=== PATIENT | female | born 1975 | race Caucasian/White ===

== ENCOUNTER 2016-10-07 21:51 | Emergency (ER) | payer BC ==
--- NOTE | 2016-10-07 23:50 | ED ORDER SUMMARY ---
..... Patient: IVANA GOMEZ OrderSheet [facility] VisitID: [id number] [place] [address] 40y, F Registration Date/Time: 10/07/2016 ORDER SHEET Weight: 49.8 kg (stated) Allergies: No Known Drug Allergy GENERAL ORDERS: Mortician Supplies Sales Representative (Continuous) (22:10/07/2016 Kostas HUNTER) (22:15 EInderbitzen R.N.) CBC w Diff Urgent (22:10/07/2016 Kostas HUNTER) (Ack 22:10 CHagerty ER Tube Repairer) (22:56 EInderbitzen R.N.) CMP Urgent (:10/07/2016 Kostas HUNTER) (Ack 22:10 CHagchino ER Tube Repairer) (22:56 EInderbitzen R.N.) UA-Culture if indicated Urgent (22:10/07/2016 Kostas HUNTER) (Ack 22:10 Xiang ER Tube Repairer) Amylase Urgent (22:10/07/2016 Kostas HUNTER) (Ack 22:10 Lottieerty ER Tube Repairer) (22:56 EInderbitzen R.N.) Lipase Urgent (22:10/07/2016 Kostas HUNTER) (Ack 22:10 CHagchino ER Tube Repairer) (22:56 EInderbitzen R.N.) CPK Urgent (22:10/07/2016 Kostas HUNTER) (Ack 22:10 CHagchino ER Tube Repairer) (22:56 EInderbitzen R.N.) Troponin-I Urgent (22:10/07/2016 Kostas HUNTER) (Ack 22:10 CHagerty ER Tube Repairer) (22:56 EInderbitzen R.N.) D-Dimer Urgent (22:10/07/2016 Kostas HUNTER) (Ack 22:10 Xiang ER Tube Repairer) (22:56 EInderbitzen R.N.) Urine Urgent (22:10/07/2016 Kostas HUNTER) (Ack 22:10 CHagerty ER Tube Repairer) Oxygen (2 L/min) (NC) (22:10/07/2016 Kostas UHNTER) (22:15 EInderbitzen R.N.) Pulse oximeter (22:09 10/07/2016 Kostas HUNTER) (22:15 EInderbitzen R.N.) EKG - ER Stat (22:09 10/07/2016 Kostas HUNTER) (Ack 22:10 CHagerty ER Tube Repairer) (22:20 CHagerty ER Tube Repairer) Abd Series 2V Abd/1V Chest Urgent (23:19 10/07/2016 Kostas HUNTER) (Ack 23:24 CHagerty ER Tube Repairer) (23:36 MCampbell) MEDICATION ORDERS: GI Cocktail WHITE PO 30 mL with Lidocaine Viscous Mouth/Throat 15 mL, Maalox Plus Oral 15 mL (NOW) (22:26 10/07/2016 Kostas HUNTER) (22:57 EInderbitzen R.N.) IV FLUIDS: IV Saline Lock (22:09 10/07/2016 Kostas HUNTER) (22:56 EInderbitzen R.N.) Protonix IVP 40mg 40 mg (Mix in NS 10ml over 2min) (22:30 10/07/2016 Kostas HUNTER) (22:57 EInderbitzen R.N.) IV NS : initial bolus 500 mL (1000 mL/hr), then 125 mL/hr for 4h (NOW); Urgent (22:34 10/07/2016 Kostas HUNTER) (22:58 EInderbitzen R.N.) ORDER SHEET NOTES: [Electronically signed by Brandon Downs MD (01:22 10/08/2016)] [Electronically signed by Fidelia Reyes R.N. (19:36 10/08/2016)] [Electronically locked/signed by Fidelia Reyes R.N. (19:36 10/08/2016)]
--- NOTE | 2016-10-07 23:50 | ED NURSING NOTES ---
Clinical Report - Nurses [facility] [address] [place] [address] 10/07/2016 21:54 Patient: IVANA GOMEZ TRIAGE Triage time 2200. Acuity: LEVEL 3. Chief Complaint: ABDOMINAL PAIN and (midline abd pain she describes as stabbing onset this am, getting progressively worse thru day, now having epigstric/chest pain). --22:10 Ann Ye R.N. 22:00 10/07/16. BP: 126/88. HR: 85. RR: 20. O2 saturation: 100%. Temp: 98.5 F. Pain level now: 03/24. --22:10 Ann Ye R.N. Weight: 49.8 kg stated. Height/Length: 64 inches Per Patient. BMI: 18.9. --22:09 Ann Ye R.N. Allergies No Known Drug Allergy. --19:35 Fidelia Reyes R.N. History Arrived by private vehicle. Historian: patient. Accompanied by spouse. No primary care physician. The patient has had abdominal pain. ( has hx of Gastric reflux, worried she might be getting an ulcer). No nausea, vomiting or diarrhea. PAST MEDICAL HX: Last normal menstrual period- 2 weeks ago. SURGERY HX: Tonsillectomy. ( facial surgery demies removal/ D&C). SOCIAL HX: Former smoker- less than 1/2 a pack per day. Occasional alcohol use. No drug use. --22:10 Ann Ye R.N. PROBLEMS: Gastric reflux. --22:07 Ann Ye R.N. Assessment The patient states does not feel worse. --22:10 Ann Ye R.N. Interventions ID band on patient. To treatment room. --22:10 Ann Ye R.N. PHYSICAL ASSESSMENT 22:00. Ambulatory to room. Patient gowned. GENERAL / NEURO / PSYCH: Alert. Oriented X 4. Appears in pain. RESPIRATORY: Respirations not labored. CVS: Capillary refill less than 2 seconds. GI / : Abdomen soft. SKIN: Skin is warm and dry. --22:11 Ann Ye R.N. NURSING PROGRESS NOTES 22:00. Patient gowned. Head of bed elevated. Reassurance given. Patient identifiers checked. Call light placed in reach. Side rails up. Bed placed in lowest position. Patient ready for evaluation- chart flagged. --22:10 Ann Ye R.N. 22:20 10/07/16. ( MD at bedside). --22:20 Fidelia Reyes R.N. EKG time: (2220). EKG was ordered, performed by a tech and shown to the ED physician. --22:22 Willie Saha, ER Subassembly Supervisor 22:40 10/07/2016 Site #1 started via IV in the left forearm with an 20g angiocath, with aseptic technique and good blood return; one attempt. Blood drawn: rainbow set. Labeled in the presence of the patient and sent to the lab. Saline lock flushed with 5 mL saline. --22:56 Fidelia Reyes R.N. 22:50 10/07/2016 Started bag #1 1000 mL IV Fluids IV NS (Saline); bolus of 500 mL over 30 minute(s) then at 125 mL/hr over 4 hour(s) via site #1 via IV pump. Allergies verified and confirmed 5 rights. IV patency established. IV site checked: no pain, redness, or swelling. IV flushed thoroughly pre- and post-medication administration. --22:58 Fidelia Reyes R.N. 22:52 10/07/2016 PROTONIX (Pantoprazole Sodium) IVP 40 mg given over 5 minute(s) via site #1. Allergies verified and confirmed 5 rights. IV patency established. IV site checked: no pain, redness, or swelling. IV flushed thoroughly pre- and post-medication administration. IVP given by RN. --22:57 Fidelia Reyes R.N. 22:53 10/07/2016 GI COCKTAIL WHITE (Simethicone) PO Oral Suspension 30 mL given. Allergies verified and confirmed 5 rights. --22:57 Fidelia Reyes R.N. 23:12 10/07/16. Reassessment after fluids administered and medication administered. She is calm and resting quietly. Overall patient status is the same- she states feels the same. --23:12 Fidelia Reyes R.N. 23:27 10/07/16. Patient walked to [facility] with tech. ( Pain medication offered, patient declined.). --23:27 Fidelia Reyes R.N. DISPOSITION / DISCHARGE Departure time: 00:39 Oct 08 2016. The patient was discharged by the physician. She was discharged home and accompanied by family. She left the Emergency Department ambulatory and via private vehicle. Family member driving. --00:39 Sander Greenfield R.N. 00:38 10/08/16. BP: 108/74. HR: 82. RR: 18. O2 saturation: 98%. Temp: 97.8 F. --00:39 Sander Greenfield R.N. Locked/Released at 10/08/2016 19:36 by Fidelia Reyes R.N.
--- NOTE | 2016-10-07 23:50 | ED CLINICAL REPORT ---
Clinical Report - Physicians/Mid Levels [facility] [address] [place] [address] 10/07/2016 21:54 Patient: IVANA GOMEZ Time Seen: 22:07. Arrived- By private vehicle. Historian- patient. HISTORY OF PRESENT ILLNESS Chief Complaint: ABDOMINAL PAIN. At its maximum, severity described as 8 / 10. When seen in the E.D., severity described as mild. Modifying factors- worsened by walking. Relieved by antacids. It is described as stabbing and burning and it is described as located in the upper abdomen and radiating to the chest. This started today and is still present. It was abrupt in onset and has been constant and waxing/waning. No nausea, loss of appetite, vomiting or diarrhea. No recent travel. Similar symptoms previously: Several times. Evaluation/treatment: H2 cheryl prescribed and see medication list. Diagnosis: (GERD). REVIEW OF SYSTEMS Last normal menstrual period- 21 Sep 2016. No chills, fever, sweats, calf pain or cough. No difficulty breathing, pedal edema, palpitations, black stools or bloody stools. No constipation or urinary problems. All systems otherwise negative, except as recorded above. PAST HISTORY PCP - None. SOCIAL HISTORY Current every day heavy tobacco smoker (cigarette)- less than 1 pack per day. Occasional alcohol use. No drug use. Residence: [place]. FAMILY HISTORY Hypertension in first-degree relative (father). father with severe GERD. ADDITIONAL NOTES The nursing notes have been reviewed. PHYSICAL EXAM Vital Signs: 10/07/2016 22:00 BP: 126/88. HR: 85. RR: 20. O2 saturation: 100%. Temp: 98.5 F. Pain level now: 8/10. Have been reviewed. Appearance: Alert. Eyes: Pupils equal, round and reactive to light. ENT: Pharynx normal. Neck: Neck supple. CVS: Normal heart rate and rhythm. Heart sounds normal. Respiratory: No respiratory distress. Breath sounds normal. Abdomen: Soft and nontender. Bowel sounds normal. No organomegaly. No mass. Back: Normal inspection. Skin: Skin warm and dry. Normal skin color. Normal skin turgor. Extremities: Extremities exhibit normal ROM. No lower extremity edema. LABS, X-RAYS, AND EKG EKG: Rate: 85. The study has been independently viewed by me. Chest X-ray: No acute disease. The X-rays were independently viewed by me. KUB: No acute disease. The X-rays were independently viewed by me. Laboratory Tests: UA-Culture if indicated: (LEANN: 10/07/2016 23:00) ( [facility] [place] 10/07/2016 23:21) Final results Test Result Flag Units (Reference) URINE COLOR YELLOW URINE APPEARANCE CLEAR URINE GLUCOSE NEGATIVE (NEGATIVE) URINE BILIRUBIN NEGATIVE (NEGATIVE) URINE KETONE NEGATIVE (NEGATIVE) URINE SPECIFIC GRAVITY 1.015 (1.010-1.030) URINE PH 6.0 (5.0-8.0) URINE PROTEIN NEGATIVE (NEGATIVE) URINE UROBILINOGEN 0.2 EU/dL (0.2-1.0) URINE NITRITE NEGATIVE (NEGATIVE) URINE BLOOD NEGATIVE (NEGATIVE) URINE LEUK ESTERASE NEGATIVE (NEGATIVE) URINE RBC 1-3 rbc/hpf (0-1) URINE WBC 0-1 wbc/hpf (0-1) URINE EPITHELIAL CELLS 1-3 EPI/hpf (0-5) URINE BACTERIA TRACE (<1+) (NONE SEEN) URINE COMMENT CULT NOT INDICATED URINE CULTURES ARE SET-UP BASED ON THE FOLLOWING CRITERIA:POSITIVE NITRITEPOSITIVE LEUKOCYTE ESTERASEGREATER THAN 10 WHITE BLOOD CELLSMODERATE (2+) OR GREATER BACTERIA Urine: (LEANN: 10/07/2016 23:00) ( [facility] [place] 10/07/[place] 23:16) Final results Test Result Flag Units (Reference) URINE NEGATIVE CBC w Diff: (LEANN: 10/07/2016 22:40) ( [facility] [place] 10/07/2016 22:54) Final results Test Result Flag Units (Reference) WHITE BLOOD COUNT 13.7 H K/uL (4.5-11.5) RED BLOOD COUNT 4.59 M/uL (4.00-5.20) HEMOGLOBIN 13.6 gm/dL (12.0-16.0) HEMATOCRIT 41.5 % (36.0-46.0) MEAN CELL VOLUME 90 fL (80-100) MEAN CORPUSCULAR HGB 30 pg (26-34) MEAN CORPUSCULAR HGB CONC 33 g/dL (31-37) RED CELL DISTRIBUTION WIDTH 13.1 % (11.6-14.8) PLATELET COUNT 229 K/uL (150-400) LYMPH % 25.2 % (25-40) MONO % 2.4 L % (3-14) GRANULOCYTE % 72.4 (53-90) [id number]: (LEANN: 10/07/2016 22:40) ( [facility] [place] 10/07/2016 23:05) Final results Test Result Flag Units (Reference) D-DIMER QUANTITATIVE < 0.27 L ug/mLFEU (0.27-0.52) The primary value of this quantitative assay relates toits negative predictive value (i.e. exclusion) of pulmonaryembolism/deep vein thrombosis/DIC.Elevated levels of d-dimer may also occur with:, age, cancer, inflammation, liver disease,post-op, infection, hematoma, coronary disease, peripheralarteriopathy, bleeding disorders and thrombolytic treatment.Results should be correlated with other clinical andradiological data.Testing Methodology: Latex Immunoassay CMP: (LEANN: 10/07/2016 22:40) ( [facility] 10/07/2016 23:11) Final results Test Result Flag Units (Reference) GLUCOSE 106 mg/dL (70-110) BUN 12 mg/dL (7-18) CREATININE 0.8 mg/dL (0.6-1.3) Estimated GFR >60 mL/min Estimated GFR- >60 mL/min Note: Persistent reduction over 3 months in eGFR<60 mL/min/1.73 m2 defines CKD. Patients with eGFR values>=60 mL/min/1.73 m2 may also have CKD if evidence ofpersistent proteinuria. Additional information may be foundat www.kidney.org. SODIUM 139 mmol/L (136-145) POTASSIUM 4.0 mmol/L (3.5-5.1) CHLORIDE 104 mmol/L (98-107) CARBON DIOXIDE 25 mmol/L (21-32) CALCIUM 9.1 mg/dL (8.5-10.1) TOTAL PROTEIN 6.9 g/dL (6.4-8.2) ALBUMIN 4.0 g/dL (3.3-5.0) BILIRUBIN, TOTAL 0.3 mg/dL (0.0-1.0) ALKALINE PHOSPHATASE 38 L U/L (46-116) AST (SGOT) 10 L U/L (15-37) ALT (SGPT) 19 U/L (12-78) LIPASE 177 U/L (73-393) AMYLASE 42 U/L (25-115) CPK 59 U/L (24-260) TROPONIN I <0.05 L ng/mL (0.00-1.5) TROPONIN REFERENCE RANGE:<0.1 NEGATIVE0.1-1.5 INDETERMINANT>1.5 POSITIVE . PROGRESS AND PROCEDURES Patient/family counseled. Old medical records ordered. Old records unavailable. Disposition: Discharged. Condition: stable. CLINICAL IMPRESSION Gastroesophageal reflux disease with esophagitis. Gastritis INSTRUCTIONS Drink plenty of fluids. Avoid alcohol and NSAIDS. NSAIDS include aspirin, ibuprofen (Advil) and naproxen (Aleve). Avoid salty and spicy foods. Warnings: Further evaluation is necessary. GENERAL WARNINGS: Return or contact your physician immediately if your condition worsens or changes unexpectedly, if not improving as expected, or if other problems arise. Prescription Medications: Carafate 1 gm tablets: take 1 orally four times daily (1 hour before meals and at bedtime). Dispense sixty (60). No refills. Substitution is permissible. Prilosec 20 mg capsules: take 1 capsule orally every 12 hours. Dispense thirty (30). No refill. Substitution is permissible. Follow-up: Follow up with a paid search analyst- as recommended by your primary care physician. Understanding of the discharge instructions verbalized by patient and family. Follow-up with: [facility], , , [address], , [place], [id number] Follow up in five days. Call for the next available appointment. (Electronically signed by Brandon Downs MD 10/08/2016 1:22)
--- NOTE | 2016-10-07 23:50 | ED NURSING NOTES ---
Clinical Report - Nurses [facility] [address] [place] [address] 10/07/2016 21:54 Patient: IVANA GOMEZ TRIAGE Triage time 2200. Acuity: LEVEL 3. Chief Complaint: ABDOMINAL PAIN and (midline abd pain she describes as stabbing onset this am, getting progressively worse thru day, now having epigstric/chest pain). --22:10 Ann eY R.N. 22:00 10/07/16. BP: 126/88. HR: 85. RR: 20. O2 saturation: 100%. Temp: 98.5 F. Pain level now: 03/24. --22:10 Ann Ye R.N. Weight: 49.8 kg stated. Height/Length: 64 inches Per Patient. BMI: 18.9. --22:09 Ann Ye R.N. Allergies No Known Drug Allergy. --19:35 Fidelia Reyes R.N. History Arrived by private vehicle. Historian: patient. Accompanied by spouse. No primary care physician. The patient has had abdominal pain. ( has hx of Gastric reflux, worried she might be getting an ulcer). No nausea, vomiting or diarrhea. PAST MEDICAL HX: Last normal menstrual period- 2 weeks ago. SURGERY HX: Tonsillectomy. ( facial surgery demies removal/ D&C). SOCIAL HX: Former smoker- less than 1/2 a pack per day. Occasional alcohol use. No drug use. --22:10 Ann Ye R.N. PROBLEMS: Gastric reflux. --22:07 Ann Ye R.N. Assessment The patient states does not feel worse. --22:10 Ann Ye R.N. Interventions ID band on patient. To treatment room. --22:10 Ann Ye R.N. PHYSICAL ASSESSMENT 22:00. Ambulatory to room. Patient gowned. GENERAL / NEURO / PSYCH: Alert. Oriented X 4. Appears in pain. RESPIRATORY: Respirations not labored. CVS: Capillary refill less than 2 seconds. GI / : Abdomen soft. SKIN: Skin is warm and dry. --22:11 Ann Ye R.N. NURSING PROGRESS NOTES 22:00. Patient gowned. Head of bed elevated. Reassurance given. Patient identifiers checked. Call light placed in reach. Side rails up. Bed placed in lowest position. Patient ready for evaluation- chart flagged. --22:10 Ann Ye R.N. 22:20 10/07/16. ( MD at bedside). --22:20 Fidelia Reyes R.N. EKG time: (2220). EKG was ordered, performed by a tech and shown to the ED physician. --22:22 Willie Saha, ER Drafter Topographical 22:40 10/07/2016 Site #1 started via IV in the left forearm with an 20g angiocath, with aseptic technique and good blood return; one attempt. Blood drawn: rainbow set. Labeled in the presence of the patient and sent to the lab. Saline lock flushed with 5 mL saline. --22:56 Fidelia Reyes R.N. 22:50 10/07/2016 Started bag #1 1000 mL IV Fluids IV NS (Saline); bolus of 500 mL over 30 minute(s) then at 125 mL/hr over 4 hour(s) via site #1 via IV pump. Allergies verified and confirmed 5 rights. IV patency established. IV site checked: no pain, redness, or swelling. IV flushed thoroughly pre- and post-medication administration. --22:58 Fidelia Reyes R.N. 22:52 10/07/2016 PROTONIX (Pantoprazole Sodium) IVP 40 mg given over 5 minute(s) via site #1. Allergies verified and confirmed 5 rights. IV patency established. IV site checked: no pain, redness, or swelling. IV flushed thoroughly pre- and post-medication administration. IVP given by RN. --22:57 Fidelia Reyes R.N. 22:53 10/07/2016 GI COCKTAIL WHITE (Simethicone) PO Oral Suspension 30 mL given. Allergies verified and confirmed 5 rights. --22:57 Fidelia Reyes R.N. 23:12 10/07/16. Reassessment after fluids administered and medication administered. She is calm and resting quietly. Overall patient status is the same- she states feels the same. --23:12 Fidelia Reyes R.N. 23:27 10/07/16. Patient walked to [facility] with tech. ( Pain medication offered, patient declined.). --23:27 Fidelia Reyes R.N. DISPOSITION / DISCHARGE Departure time: 00:39 Oct 08 2016. The patient was discharged by the physician. She was discharged home and accompanied by family. She left the Emergency Department ambulatory and via private vehicle. Family member driving. --00:39 Sander Greenfield R.N. 00:38 10/08/16. BP: 108/74. HR: 82. RR: 18. O2 saturation: 98%. Temp: 97.8 F. --00:39 Sander Greenfield R.N. Locked/Released at 10/08/2016 19:36 by Fidelia Reyes R.N.
--- NOTE | 2016-10-07 23:50 | ED ORDER SUMMARY ---
..... Patient: IVANA GOMEZ OrderSheet [facility] VisitID: [id number] [place] [address] 40y, F Registration Date/Time: 10/07/2016 ORDER SHEET Weight: 49.8 kg (stated) Allergies: No Known Drug Allergy GENERAL ORDERS: Clinical Systems Analyst (Continuous) (22:10/07/2016 Kostas HUNTER) (22:15 EInderbitzen R.N.) CBC w Diff Urgent (22:10/07/2016 Kostas HUNTER) (Ack 22:10 CHagerty ER Marketing Trainee) (22:56 EInderbitzen R.N.) CMP Urgent (:10/07/2016 Kostas HUNTER) (Ack 22:10 CHagchino ER Marketing Trainee) (22:56 EInderbitzen R.N.) UA-Culture if indicated Urgent (22:10/07/2016 Kostas HUNTER) (Ack 22:10 Xiang ER Marketing Trainee) Amylase Urgent (22:10/07/2016 Kostas HUNTER) (Ack 22:10 Lottieerty ER Marketing Trainee) (22:56 EInderbitzen R.N.) Lipase Urgent (22:10/07/2016 Kostas HUNTER) (Ack 22:10 CHagchino ER Marketing Trainee) (22:56 EInderbitzen R.N.) CPK Urgent (22:10/07/2016 Kostas HUNTER) (Ack 22:10 CHagchino ER Marketing Trainee) (22:56 EInderbitzen R.N.) Troponin-I Urgent (22:10/07/2016 Kostas HUNTER) (Ack 22:10 CHagerty ER Marketing Trainee) (22:56 EInderbitzen R.N.) D-Dimer Urgent (22:10/07/2016 Kostas HUNTER) (Ack 22:10 Xiang ER Marketing Trainee) (22:56 EInderbitzen R.N.) Urine Urgent (22:10/07/2016 Kostas HUNTER) (Ack 22:10 CHagerty ER Marketing Trainee) Oxygen (2 L/min) (NC) (22:10/07/2016 Kostas HUNTER) (22:15 EInderbitzen R.N.) Pulse oximeter (22:09 10/07/2016 Kostas HUNTER) (22:15 EInderbitzen R.N.) EKG - ER Stat (22:09 10/07/2016 Kostas HUNTER) (Ack 22:10 CHagerty ER Marketing Trainee) (22:20 CHagerty ER Marketing Trainee) Abd Series 2V Abd/1V Chest Urgent (23:19 10/07/2016 Kostas HUNTER) (Ack 23:24 CHagerty ER Marketing Trainee) (23:36 MCampbell) MEDICATION ORDERS: GI Cocktail WHITE PO 30 mL with Lidocaine Viscous Mouth/Throat 15 mL, Maalox Plus Oral 15 mL (NOW) (22:26 10/07/2016 Kostas HUNTER) (22:57 EInderbitzen R.N.) IV FLUIDS: IV Saline Lock (22:09 10/07/2016 Kostas HUNTER) (22:56 EInderbitzen R.N.) Protonix IVP 40mg 40 mg (Mix in NS 10ml over 2min) (22:30 10/07/2016 Kostas HUNTER) (22:57 EInderbitzen R.N.) IV NS : initial bolus 500 mL (1000 mL/hr), then 125 mL/hr for 4h (NOW); Urgent (22:34 10/07/2016 Kostas HUNTER) (22:58 EInderbitzen R.N.) ORDER SHEET NOTES: [Electronically signed by Brandon Downs MD (01:22 10/08/2016)] [Electronically signed by Fidelia Reyes R.N. (19:36 10/08/2016)] [Electronically locked/signed by Fidelia Reyes R.N. (19:36 10/08/2016)]
--- NOTE | 2016-10-07 23:50 | ED CLINICAL REPORT ---
Clinical Report - Physicians/Mid Levels [facility] [address] [place] [address] 10/07/2016 21:54 Patient: IVANA GOMEZ Time Seen: 22:07. Arrived- By private vehicle. Historian- patient. HISTORY OF PRESENT ILLNESS Chief Complaint: ABDOMINAL PAIN. At its maximum, severity described as 8 / 10. When seen in the E.D., severity described as mild. Modifying factors- worsened by walking. Relieved by antacids. It is described as stabbing and burning and it is described as located in the upper abdomen and radiating to the chest. This started today and is still present. It was abrupt in onset and has been constant and waxing/waning. No nausea, loss of appetite, vomiting or diarrhea. No recent travel. Similar symptoms previously: Several times. Evaluation/treatment: H2 cheryl prescribed and see medication list. Diagnosis: (GERD). REVIEW OF SYSTEMS Last normal menstrual period- 21 Sep 2016. No chills, fever, sweats, calf pain or cough. No difficulty breathing, pedal edema, palpitations, black stools or bloody stools. No constipation or urinary problems. All systems otherwise negative, except as recorded above. PAST HISTORY PCP - None. SOCIAL HISTORY Current every day heavy tobacco smoker (cigarette)- less than 1 pack per day. Occasional alcohol use. No drug use. Residence: [place]. FAMILY HISTORY Hypertension in first-degree relative (father). father with severe GERD. ADDITIONAL NOTES The nursing notes have been reviewed. PHYSICAL EXAM Vital Signs: 10/07/2016 22:00 BP: 126/88. HR: 85. RR: 20. O2 saturation: 100%. Temp: 98.5 F. Pain level now: 8/10. Have been reviewed. Appearance: Alert. Eyes: Pupils equal, round and reactive to light. ENT: Pharynx normal. Neck: Neck supple. CVS: Normal heart rate and rhythm. Heart sounds normal. Respiratory: No respiratory distress. Breath sounds normal. Abdomen: Soft and nontender. Bowel sounds normal. No organomegaly. No mass. Back: Normal inspection. Skin: Skin warm and dry. Normal skin color. Normal skin turgor. Extremities: Extremities exhibit normal ROM. No lower extremity edema. LABS, X-RAYS, AND EKG EKG: Rate: 85. The study has been independently viewed by me. Chest X-ray: No acute disease. The X-rays were independently viewed by me. KUB: No acute disease. The X-rays were independently viewed by me. Laboratory Tests: UA-Culture if indicated: (LEANN: 10/07/2016 23:00) ( [facility] [place] [place] 10/07/2016 23:21) Final results Test Result Flag Units (Reference) URINE COLOR YELLOW URINE APPEARANCE CLEAR URINE GLUCOSE NEGATIVE (NEGATIVE) URINE BILIRUBIN NEGATIVE (NEGATIVE) URINE KETONE NEGATIVE (NEGATIVE) URINE SPECIFIC GRAVITY 1.015 (1.010-1.030) URINE PH 6.0 (5.0-8.0) URINE PROTEIN NEGATIVE (NEGATIVE) URINE UROBILINOGEN 0.2 EU/dL (0.2-1.0) URINE NITRITE NEGATIVE (NEGATIVE) URINE BLOOD NEGATIVE (NEGATIVE) URINE LEUK ESTERASE NEGATIVE (NEGATIVE) URINE RBC 1-3 rbc/hpf (0-1) URINE WBC 0-1 wbc/hpf (0-1) URINE EPITHELIAL CELLS 1-3 EPI/hpf (0-5) URINE BACTERIA TRACE (<1+) (NONE SEEN) URINE COMMENT CULT NOT INDICATED URINE CULTURES ARE SET-UP BASED ON THE FOLLOWING CRITERIA:POSITIVE NITRITEPOSITIVE LEUKOCYTE ESTERASEGREATER THAN 10 WHITE BLOOD CELLSMODERATE (2+) OR GREATER BACTERIA Urine: (LEANN: 10/07/2016 23:00) ( [facility] [place] 10/07/2016 23:16) Final results Test Result Flag Units (Reference) URINE NEGATIVE CBC w Diff: (LEANN: 10/07/2016 22:40) ( [facility] [place] 10/07/2016 22:54) Final results Test Result Flag Units (Reference) WHITE BLOOD COUNT 13.7 H K/uL (4.5-11.5) RED BLOOD COUNT 4.59 M/uL (4.00-5.20) HEMOGLOBIN 13.6 gm/dL (12.0-16.0) HEMATOCRIT 41.5 % (36.0-46.0) MEAN CELL VOLUME 90 fL (80-100) MEAN CORPUSCULAR HGB 30 pg (26-34) MEAN CORPUSCULAR HGB CONC 33 g/dL (31-37) RED CELL DISTRIBUTION WIDTH 13.1 % (11.6-14.8) PLATELET COUNT 229 K/uL (150-400) LYMPH % 25.2 % (25-40) MONO % 2.4 L % (3-14) GRANULOCYTE % 72.4 (53-90) [id number]: (LEANN: 10/07/2016 22:40) ( [facility] [place] 10/07/2016 23:05) Final results Test Result Flag Units (Reference) D-DIMER QUANTITATIVE < 0.27 L ug/mLFEU (0.27-0.52) The primary value of this quantitative assay relates toits negative predictive value (i.e. exclusion) of pulmonaryembolism/deep vein thrombosis/DIC.Elevated levels of d-dimer may also occur with:, age, cancer, inflammation, liver disease,post-op, infection, hematoma, coronary disease, peripheralarteriopathy, bleeding disorders and thrombolytic treatment.Results should be correlated with other clinical andradiological data.Testing Methodology: Latex Immunoassay CMP: (LEANN: 10/07/2016 22:40) ( MsgRcvd 10/07/2016 23:11) Final results Test Result Flag Units (Reference) GLUCOSE 106 mg/dL (70-110) BUN 12 mg/dL (7-18) CREATININE 0.8 mg/dL (0.6-1.3) Estimated GFR >60 mL/min Estimated GFR- >60 mL/min Note: Persistent reduction over 3 months in eGFR<60 mL/min/1.73 m2 defines CKD. Patients with eGFR values>=60 mL/min/1.73 m2 may also have CKD if evidence ofpersistent proteinuria. Additional information may be foundat [email or web address]. SODIUM 139 mmol/L (136-145) POTASSIUM 4.0 mmol/L (3.5-5.1) CHLORIDE 104 mmol/L (98-107) CARBON DIOXIDE 25 mmol/L (21-32) CALCIUM 9.1 mg/dL (8.5-10.1) TOTAL PROTEIN 6.9 g/dL (6.4-8.2) ALBUMIN 4.0 g/dL (3.3-5.0) BILIRUBIN, TOTAL 0.3 mg/dL (0.0-1.0) ALKALINE PHOSPHATASE 38 L U/L (46-116) AST (SGOT) 10 L U/L (15-37) ALT (SGPT) 19 U/L (12-78) LIPASE 177 U/L (73-393) AMYLASE 42 U/L (25-115) CPK 59 U/L (24-260) TROPONIN I <0.05 L ng/mL (0.00-1.5) TROPONIN REFERENCE RANGE:<0.1 NEGATIVE0.1-1.5 INDETERMINANT>1.5 POSITIVE . PROGRESS AND PROCEDURES Patient/family counseled. Old medical records ordered. Old records unavailable. Disposition: Discharged. Condition: stable. CLINICAL IMPRESSION Gastroesophageal reflux disease with esophagitis. Gastritis INSTRUCTIONS Drink plenty of fluids. Avoid alcohol and NSAIDS. NSAIDS include aspirin, ibuprofen (Advil) and naproxen (Aleve). Avoid salty and spicy foods. Warnings: Further evaluation is necessary. GENERAL WARNINGS: Return or contact your physician immediately if your condition worsens or changes unexpectedly, if not improving as expected, or if other problems arise. Prescription Medications: Carafate 1 gm tablets: take 1 orally four times daily (1 hour before meals and at bedtime). Dispense sixty (60). No refills. Substitution is permissible. Prilosec 20 mg capsules: take 1 capsule orally every 12 hours. Dispense thirty (30). No refill. Substitution is permissible. Follow-up: Follow up with a short order cook- as recommended by your primary care physician. Understanding of the discharge instructions verbalized by patient and family. Follow-up with: [facility], , , [address], , [place], [address] Follow up in five days. Call for the next available appointment. (Electronically signed by Brandon Downs MD 10/08/2016 1:22)
--- NOTE | 2016-10-08 06:15 | DIAGNOSTIC IMAGING REPORT ---
PROCEDURE: XR ABD SERIES 2V ABD/1V CHEST INDICATION: ABDOMINAL PAIN TECHNIQUE: AP supine and upright views of the abdomen with single view of the chest. COMPARISON: None. FINDINGS: CHEST: Lungs are clear. Normal cardiovascular structures. Bony thorax is unremarkable. ABDOMEN: Bowel gas pattern is normal. Moderate stool. No soft-tissue masses or unusual calcifications. No evidence of free air. Osseous structures are unremarkable. IMPRESSION: 1. Moderate stool.
--- NOTE | 2016-10-08 19:36 | ED MED RECONCILIATION SUMMARY ---
Patient: IVANA GOMEZ Medication Reconciliation Report [facility] VisitID: [id number] [address] [place] [address] 40y, F Registration Date/Time: 10/07/2016 Weight: 49.8 kg Height/Length: 64 in. BMI: 18.9 ALLERGIES: No Known Drug Allergy The patient's Home Medications are listed below: Not obtained. The source(s) of the original Home Medication information: Not obtained. The following Medications were given to the patient in the Emergency Department: GI COCKTAIL WHITE [PO] PO 30 mL, administered: 10/07/2016 10:53:00 PM PROTONIX [IVP] IVP 40 mg, administered: 10/07/2016 10:52:00 PM IV NS IV Fluids bolus 500 mL over 30 minute(s), then 125 mL/hr, administered: 10/07/2016 10:50:00 PM The following Medications were prescribed to the patient: Carafate 1 gm tablets: take 1 orally four times daily (1 hour before meals and at bedtime). Dispense sixty (60). No refills. Substitution is permissible. -- Brandon Downs MD Prilosec 20 mg capsules: take 1 capsule orally every 12 hours. Dispense thirty (30). No refill. Substitution is permissible. -- Brandon Downs MD
--- NOTE | 2016-10-08 19:36 | ED DISCHARGE INSTRUCTIONS ---
Patient: IVANA GOMEZ General Instructions Merged With [facility] VisitID: [id number] [address], [place] [address] 40y, F Registration Date/Time: 10/07/2016 Gastroesophageal reflux disease with esophagitis. Gastritis INSTRUCTIONS Drink plenty of fluids. Avoid alcohol and NSAIDS. NSAIDS include aspirin, ibuprofen (Advil) and naproxen (Aleve). Avoid salty and spicy foods. Warnings: Further evaluation is necessary. GENERAL WARNINGS: Return or contact your physician immediately if your condition worsens or changes unexpectedly, if not improving as expected, or if other problems arise. Prescription Medications: Carafate 1 gm tablets: take 1 orally four times daily (1 hour before meals and at bedtime). Dispense sixty (60). No refills. Substitution is permissible. Prilosec 20 mg capsules: take 1 capsule orally every 12 hours. Dispense thirty (30). No refill. Substitution is permissible. Follow-up: Follow up with a injection machine operator- as recommended by your primary care physician. Understanding of the discharge instructions verbalized by patient and family. Follow-up with: [facility], , , [address], [facility], [id number] Follow up in five days. Call for the next available appointment. ADDITIONAL INFORMATION Gastritis Versus Ulcer (No Antibiotic Tx) The symptoms of gastritis and peptic ulcer are very similar. Both can cause a dull ache or burning pain in the upper abdomen. Other symptoms include nausea, vomiting, loss of appetite, and belching or bloating. Blood in the vomit or stools (red or black) is a sign of bleeding in the stomach. This requires immediate medical attention. A Peptic Ulcer is an open sore in the lining of the stomach or duodenum (upper intestine). The most common cause of peptic ulcer disease is a bacterial infection (H pylori) in the stomach. Another common cause is taking anti-inflammatory medications (such as ibuprofen, prednisone, and aspirin). Gastritis is an irritation of the stomach lining. It can be acute (recent) or chronic (lasting a long time). Gastritis can be caused by overuse of alcohol or anti-inflammatory medications (such as aspirin, ibuprofen, prednisone). H pyloriinfection can also cause chronic gastritis. Tests for H pyloriare used to screen for bacterial infection. If no infection is found, ulcer and gastritis can be treated by stopping the cause, such as anti-inflammatory medications, alcohol, caffeine, and tobacco, and treating with antacids plus an acid cheryl medication. If H pylori infection is found, antibiotics will be prescribed along with an acid cheryl. Persons 55 years and older may undergo other tests before treatment is started. Two common tests are used to evaluate your symptoms. An upper GI series is an x-ray taken after you drink a chalky liquid called barium. This coats the stomach and allows an ulcer to show up on the x-ray. Another test is called endoscopy during which a long thin tube called an endoscope is passed down your throat to the stomach. A camera at the end of the scope allows the doctor to view inside the stomach to check the cause of your symptoms. Home Care: Take the prescribed acid cheryl medication for the full course of treatment even if you begin to feel better sooner. This medication can take up to several days to fully control your symptoms. If you cant afford the prescribed medication, you can try uhbs-yiz-jhbwrws acid blockers, such as Pepcid AC, Tagamet, Zantac, or Aciphex. If these do not relieve your symptoms, a stronger acid-cheryl can be tried, such as Prilosec OTC. If you have been prescribed an antibiotic to treat H pyloriinfection, finish the full course of medication. Do so even if you begin to feel better sooner. If you stop the medication too soon, the infection can return and be harder to treat. You can use antacids, such as Tums, Rolaids, Mylanta, or Maalox, for pain. This will be useful the first few days after starting acid blockers when the blockers havent started working yet. Follow the directions on the label. Liquid antacids may work better than tablets. Note that antacids can interfere with absorption of certain medications. Specifically, do not take Tagamet (cimetidine), Zantac (ranitidine), or Carafate (sucralfate) within 1 hour of taking an antacid. Talk with your pharmacist if you have any questions. Although foods do not cause an ulcer, symptoms can be worsened by certain foods. Limit or avoid fatty, fried, and spicy foods, as well as coffee, chocolate, mint, and foods with high acid content such as tomatoes and citrus fruit and juices (orange, grapefruit, lemon). Avoid alcohol, caffeine, and tobacco, which can delay healing. Avoid aspirin and anti-inflammatory medications such as ibuprofen (Advil, Motrin) and naproxen (Naprosyn, Aleve). Acetaminophen (Tylenol) is safe to use. Do not take more than the amount listed on the label. Follow Up with your doctor or as advised. Further testing may be needed. If you do not begin to improve over the next 4 days, contact your doctor. If you had tests, youll be notified of any new findings that affect your care. Get Prompt Medical Attention if any of the following occur: Stomach pain gets worse or moves to the lower right abdomen (appendix area) Chest pain appears or gets worse, or spreads to the back, neck, shoulder, or arm Frequent vomiting (cant keep down liquids) Blood in the stool or vomit (red or black in color) Feeling weak or dizzy, fainting, or trouble breathing Fever of 100.4F (38C) or higher, or as directed by your healthcare provider GERD (Adult) The esophagus is a tube that carries food from the mouth to the stomach. A valve at the lower end of the esophagus prevents stomach acid from flowing upward. If this valve does not work properly, acid from the stomach enters the esophagus. If this occurs over and over, the acid will injure the lining of the esophagus. This condition is called GERD (gastroesophageal reflux disease) or acid reflux. When stomach acid flows upward into the esophagus, it causes burning, pressure or sharp pain in the upper abdomen or mid to lower chest. The pain can spread to the neck, back, or shoulder, similar to heart pain (angina). There may be belching, an acid taste in the back of the throat, chronic cough, or sore throat or hoarseness. GERD symptoms often occur during the day after a big meal, but it can also occur at night when lying down. Smoking,as well as drinking alcohol, increases the risk of GERD. GERD is a chronic condition. Once it begins, it is often lifelong. Treatment includes changes in eating habits and the use of acid cheryl medications to decrease the amount of acid in the stomach. Symptoms often improve with treatment, but if treatment is stopped, the symptoms usually return after a few months. So most persons with GERD will need to continue treatment. Home Care: Take the prescribed acid cheryl medication for the full course of treatment even if you begin to feel better sooner. This medication can take up to several days to fully control your symptoms. If you cant afford the prescribed medication, you can try mkfw-noc-fmuywwf acid blockers, such as Pepcid AC, Tagamet, Zantac, or Aciphex. If these do not relieve your symptoms, a stronger acid-cheryl can be tried, such as Prilosec OTC. You can use antacids, such as Tums, Rolaids, Mylanta, or Maalox, for pain. This will be useful the first few days after starting acid blockers when the blockers havent started working yet. Follow the directions on the label. Liquid antacids may work better than tablets. Note that antacids can interfere with absorption of certain medications. Specifically, do not take Tagamet (cimetidine), Zantac (ranitidine), or Carafate (sucralfate) within 1 hour of taking an antacid. Talk with your pharmacist if you have any questions. Limit or avoid fatty, fried, and spicy foods, as well as coffee, chocolate, mint, and foods with high acid content such as tomatoes and citrus fruit and juices (orange, grapefruit, lemon). Avoid alcohol and smoking. Dont eat large meals, especially at night. Frequent, smaller meals are best. Do not lie down right after eating. And dont eat anything 3 hours before going to bed. If you are overweight, losing weight will reduce symptoms. Women should not wear corsets or girdles because this increases pressure on the stomach and worsens reflux. If your symptoms occur during sleep, use a foam wedge to elevate your upper body (not just your head.) Or, place 4" blocks under the head of your bed. Follow Up with your doctor or as advised by our staff. Further testing may be needed. If you do not begin to improve over the next 4 days, contact your doctor. If you had an x-ray, CT scan, or ECG (electrocardiogram), it will be reviewed by a specialist. Youll be notified of any new findings that affect your care. Get Prompt Medical Attention if any of the following occur: Stomach pain gets worse or moves to the lower right abdomen (appendix area) Chest pain appears or gets worse, or spreads to the back, neck, shoulder, or arm Frequent vomiting (cant keep down liquids) Blood in the stool or vomit (red or black in color) Feeling weak or dizzy, fainting, or trouble breathing Fever of 100.4F (38C) or higher, or as directed by your healthcare provider [place] Diet A bland diet is used for patients with an upset stomach. It consists of foods that are mild and easy to digest. It is better to eat small frequent meals rather than three large meals a day. BEVERAGES OK: Fruit juices, non-caffeinated teas and coffee, non-carbonated feliz AVOID: Carbonated beverage, caffeinated tea and coffee, all alcoholic beverages BREAD OK: Refined white, wheat or rye bread, adelia or soda crackers, [place] toast, plain rolls, bagels AVOID: Whole-grain bread CEREAL OK: Refined cereals: cooked or ready to eat AVOID: Whole grain cereals and granola, or those containing bran, seeds or nuts DESSERTS OK: Peanut butter and all others except those to "avoid" AVOID: Chocolate, cocoa, coconut, popcorn, nuts, seeds, jam, marmalade FRUITS OK: Canned, cooked, frozen or fresh fruits without seeds or tough skin AVOID: Olives, skin and seeds of fruit MEATS OK: All fresh or preserved meat, fish and fowl AVOID: Any that are prepared with those spices to "avoid" CHEESE & EGGS OK: Eggs, cottage cheese, cream cheese, other cheeses AVOID: All cheeses made with those spices to "avoid" POTATOES & PASTA OK: Potato, rice, macaroni, noodles, spaghetti AVOID: None SOUPS OK: All soups without heavy seasoning AVOID: Soups made with those spices to "avoid" VEGETABLES OK: Canned, cooked, fresh or frozen mildly flavored vegetables without seeds, skins or coarse fiber AVOID: Vegetables prepared with those spices to "avoid"; skin and seeds of vegetables and those with coarse fiber SPICES OK: Salt, lemon and [place] juice, vinegar, all extracts, lynda, cinnamon, thyme, mace, allspice, paprika AVOID: [place] powder, cloves, pepper, seed spices, garlic, gravy pickles, highly seasoned salad dressings Sucralfate Oral tablet What is this medicine? SUCRALFATE (SMOOTH juany fate) helps to treat ulcers of the intestine. How should I use this medicine? Take this medicine by mouth with a glass of water. Follow the directions on the prescription label. This medicine works best if you take it on an empty stomach, 1 hour before meals. Take your doses at regular intervals. Do not take your medicine more often than directed. Do not stop taking except on your doctor's advice. Talk to your executive legal secretary regarding the use of this medicine in children. Special care may be needed. What side effects may I notice from receiving this medicine? Side effects that you should report to your doctor or health director career as soon as possible: allergic reactions like skin rash, itching or hives, swelling of the face, lips, or tongue difficulty breathing Side effects that usually do not require medical attention (report to your doctor or health director career if they continue or are bothersome): back pain constipation drowsy, dizzy dry mouth headache stomach upset, gas trouble sleeping What may interact with this medicine? antacid cimetidine digoxin ketoconazole phenytoin quinidine ranitidine some antibiotics like ciprofloxacin, norfloxacin, and ofloxacin theophylline thyroid hormones warfarin What if I miss a dose? If you miss a dose, take it as soon as you can. If it is almost time for your next dose, take only that dose. Do not take double or extra doses. Where should I keep my medicine? Keep out of the reach of children. Store at room temperature between 15 and 30 degrees C (59 and 86 degrees F). Keep container tightly closed. Throw away any unused medicine after the expiration date. What should I tell my health care provider before I take this medicine? They need to know if you have any of these conditions: kidney disease an unusual or allergic reaction to sucralfate, other medicines, foods, dyes, or preservatives or trying to get breast-feeding What should I watch for while using this medicine? Visit your doctor or health director career for regular check ups. Let your doctor know if your symptoms do not improve or if you feel worse. Antacids should not be taken within one half hour before or after this medicine. Omeprazole Magnesium Gastro-resistant tablet What is this medicine? OMEPRAZOLE (oh ME pray zol) prevents the production of acid in the stomach. It is used to treat the symptoms of heartburn. You can buy this medicine without a prescription. This product is not for long-term use, unless otherwise directed by your doctor or health director career. How should I use this medicine? Take this medicine by mouth. Follow the directions on the product label. If you are taking this medicine without a prescription, take one tablet every day. Do not use for longer than 14 days or repeat a course of treatment more often than every 4 months unless directed by a doctor or healthcare professional. Take your dose at regular intervals every 24 hours. Swallow the tablet whole with a drink of water. Do not crush, break or chew. This medicine works best if taken on an empty stomach 30 minutes before breakfast. If you are using this medicine with the prescription of your doctor or healthcare professional, follow the directions you were given. Do not take your medicine more often than directed. Talk to your executive legal secretary regarding the use of this medicine in children. Special care may be needed. What side effects may I notice from receiving this medicine? Side effects that you should report to your doctor or health director career as soon as possible: allergic reactions like skin rash, itching or hives, swelling of the face, lips, or tongue bone, muscle or joint pain breathing problems chest pain or chest tightness dark yellow or brown urine diarrhea dizziness fast, irregular heartbeat feeling faint or lightheaded fever or sore throat muscle spasm palpitations redness, blistering, peeling or loosening of the skin, including inside the mouth seizures tremors unusual bleeding or bruising unusually weak or tired yellowing of the eyes or skin Side effects that usually do not require medical attention (Report these to your doctor or health director career if they continue or are bothersome.): constipation dry mouth headache loose stools nausea What may interact with this medicine? Do not take this medicine with any of the following medications: atazanavir clopidogrel nelfinavir This medicine may also interact with the following medications: ampicillin certain medicines for anxiety or sleep certain medicines that treat or prevent blood clots like warfarin cyclosporine diazepam digoxin disulfiram iron salts phenytoin prescription medicine for fungal or yeast infection like itraconazole, ketoconazole, voriconazole saquinavir tacrolimus What if I miss a dose? If you miss a dose, take it as soon as you can. If it is almost time for your next dose, take only that dose. Do not take double or extra doses. Where should I keep my medicine? Keep out of the reach of children. Store at room temperature between 20 and 25 degrees C (68 and 77 degrees F). Protect from light and moisture. Throw away any unused medicine after the expiration date. What should I tell my health care provider before I take this medicine? They need to know if you have any of these conditions: black or bloody stools chest pain difficulty swallowing have had heartburn for over 3 months have heartburn with dizziness, lightheadedness or sweating liver disease stomach pain unexplained weight loss vomiting with blood wheezing an unusual or allergic reaction to omeprazole, other medicines, foods, dyes, or preservatives or trying to get breast-feeding What should I watch for while using this medicine? It can take several days before your heartburn gets better. Check with your doctor or health director career if your condition does not start to get better, or if it gets worse. Do not treat diarrhea with over the counter products. Contact your doctor if you have diarrhea that lasts more than 2 days or if it is severe and watery. Do not treat yourself for heartburn with this medicine for more than 14 days in a row. You should only use this medicine for a 2-week treatment period once every 4 months. If your symptoms return shortly after your therapy is complete, or within the 4 month time frame, call your doctor or health director career. You have been given the following additional information: Gastritis Vs. Ulcer GERD (Adult) Diet, [place] (Adult) Sucralfate Oral tablet Omeprazole Magnesium Gastro-resistant tablet (Electronically signed by Brandon Downs MD 10/08/2016 1:22)
--- NOTE | 2016-10-08 19:36 | ED MAR SUMMARY ---
..... Medication Administration Record [facility] [address] [place] [address] Patient: IVANA GOMEZ Visit ID: [id number] 40y, F Weight: 49.8 kg Height/Length: 64 in BMI: 18.9 ALLERGIES: No Known Drug Allergy Start 22:50 10/07/2016 Fidelia Reyes R.N. Medication Administered: IV NS (SALINE), Dose: IV Fluids over 4 hour(s), Rate: 125 mL/hr, Bolus: 500 mL over 30 minute(s), Dispensed: 1000 mL bag, Site: #1 left forearm. Medication Ordered: IV NS : initial bolus 500 mL (1000 mL/hr), then 125 mL/hr for 4h (NOW); Urgent. Given 22:52 10/07/2016 Fidelia Reyes R.N. Medication Administered: PROTONIX [IVP] (PANTOPRAZOLE SODIUM), Dose: 40 mg IVP over 5 minute(s), Site: #1 left forearm. Medication Ordered: Protonix IVP 40mg 40 mg (Mix in NS 10ml over 2min). Given 22:53 10/07/2016 Fidelia Reyes R.N. Medication Administered: GI COCKTAIL WHITE [PO] (SIMETHICONE), Dose: 30 mL Oral Suspension PO. Medication Ordered: GI Cocktail WHITE PO 30 mL with Lidocaine Viscous Mouth/Throat 15 mL, Maalox Plus Oral 15 mL (NOW).
--- NOTE | 2016-10-08 19:36 | ED MED RECONCILIATION SUMMARY ---
Patient: IVANA GOMEZ Medication Reconciliation Report [facility] VisitID: [id number] [address] [place] [address] 40y, F Registration Date/Time: 10/07/2016 Weight: 49.8 kg Height/Length: 64 in. BMI: 18.9 ALLERGIES: No Known Drug Allergy The patient's Home Medications are listed below: Not obtained. The source(s) of the original Home Medication information: Not obtained. The following Medications were given to the patient in the Emergency Department: GI COCKTAIL WHITE [PO] PO 30 mL, administered: 10/07/2016 10:53:00 PM PROTONIX [IVP] IVP 40 mg, administered: 10/07/2016 10:52:00 PM IV NS IV Fluids bolus 500 mL over 30 minute(s), then 125 mL/hr, administered: 10/07/2016 10:50:00 PM The following Medications were prescribed to the patient: Carafate 1 gm tablets: take 1 orally four times daily (1 hour before meals and at bedtime). Dispense sixty (60). No refills. Substitution is permissible. -- Brandon Downs MD Prilosec 20 mg capsules: take 1 capsule orally every 12 hours. Dispense thirty (30). No refill. Substitution is permissible. -- Brandon Downs MD
--- NOTE | 2016-10-08 19:36 | ED MAR SUMMARY ---
..... Medication Administration Record [facility] [address] [place] [address] Patient: IVANA GOMEZ Visit ID: [id number] 40y, F Weight: 49.8 kg Height/Length: 64 in BMI: 18.9 ALLERGIES: No Known Drug Allergy Start 22:50 10/07/2016 Fidelia Reyes R.N. Medication Administered: IV NS (SALINE), Dose: IV Fluids over 4 hour(s), Rate: 125 mL/hr, Bolus: 500 mL over 30 minute(s), Dispensed: 1000 mL bag, Site: #1 left forearm. Medication Ordered: IV NS : initial bolus 500 mL (1000 mL/hr), then 125 mL/hr for 4h (NOW); Urgent. Given 22:52 10/07/2016 Fidelia Reyes R.N. Medication Administered: PROTONIX [IVP] (PANTOPRAZOLE SODIUM), Dose: 40 mg IVP over 5 minute(s), Site: #1 left forearm. Medication Ordered: Protonix IVP 40mg 40 mg (Mix in NS 10ml over 2min). Given 22:53 10/07/2016 Fidelia Reyes R.N. Medication Administered: GI COCKTAIL WHITE [PO] (SIMETHICONE), Dose: 30 mL Oral Suspension PO. Medication Ordered: GI Cocktail WHITE PO 30 mL with Lidocaine Viscous Mouth/Throat 15 mL, Maalox Plus Oral 15 mL (NOW).
--- NOTE | 2016-10-08 19:36 | ED DISCHARGE INSTRUCTIONS ---
Patient: IVANA GOMEZ General Instructions [facility] VisitID: [id number] [address], [place] [address] 40y, F Registration Date/Time: 10/07/2016 Gastroesophageal reflux disease with esophagitis. Gastritis INSTRUCTIONS Drink plenty of fluids. Avoid alcohol and NSAIDS. NSAIDS include aspirin, ibuprofen (Advil) and naproxen (Aleve). Avoid salty and spicy foods. Warnings: Further evaluation is necessary. GENERAL WARNINGS: Return or contact your physician immediately if your condition worsens or changes unexpectedly, if not improving as expected, or if other problems arise. Prescription Medications: Carafate 1 gm tablets: take 1 orally four times daily (1 hour before meals and at bedtime). Dispense sixty (60). No refills. Substitution is permissible. Prilosec 20 mg capsules: take 1 capsule orally every 12 hours. Dispense thirty (30). No refill. Substitution is permissible. Follow-up: Follow up with a mold stamper and repairer- as recommended by your primary care physician. Understanding of the discharge instructions verbalized by patient and family. Follow-up with: [facility], , , [address], [facility], [id number] Follow up in five days. Call for the next available appointment. ADDITIONAL INFORMATION Gastritis Versus Ulcer (No Antibiotic Tx) The symptoms of gastritis and peptic ulcer are very similar. Both can cause a dull ache or burning pain in the upper abdomen. Other symptoms include nausea, vomiting, loss of appetite, and belching or bloating. Blood in the vomit or stools (red or black) is a sign of bleeding in the stomach. This requires immediate medical attention. A Peptic Ulcer is an open sore in the lining of the stomach or duodenum (upper intestine). The most common cause of peptic ulcer disease is a bacterial infection (H pylori) in the stomach. Another common cause is taking anti-inflammatory medications (such as ibuprofen, prednisone, and aspirin). Gastritis is an irritation of the stomach lining. It can be acute (recent) or chronic (lasting a long time). Gastritis can be caused by overuse of alcohol or anti-inflammatory medications (such as aspirin, ibuprofen, prednisone). H pyloriinfection can also cause chronic gastritis. Tests for H pyloriare used to screen for bacterial infection. If no infection is found, ulcer and gastritis can be treated by stopping the cause, such as anti-inflammatory medications, alcohol, caffeine, and tobacco, and treating with antacids plus an acid cheryl medication. If H pylori infection is found, antibiotics will be prescribed along with an acid cheryl. Persons 55 years and older may undergo other tests before treatment is started. Two common tests are used to evaluate your symptoms. An upper GI series is an x-ray taken after you drink a chalky liquid called barium. This coats the stomach and allows an ulcer to show up on the x-ray. Another test is called endoscopy during which a long thin tube called an endoscope is passed down your throat to the stomach. A camera at the end of the scope allows the doctor to view inside the stomach to check the cause of your symptoms. Home Care: Take the prescribed acid cheryl medication for the full course of treatment even if you begin to feel better sooner. This medication can take up to several days to fully control your symptoms. If you cant afford the prescribed medication, you can try adrp-mpo-gkqnhst acid blockers, such as Pepcid AC, Tagamet, Zantac, or Aciphex. If these do not relieve your symptoms, a stronger acid-cheryl can be tried, such as Prilosec OTC. If you have been prescribed an antibiotic to treat H pyloriinfection, finish the full course of medication. Do so even if you begin to feel better sooner. If you stop the medication too soon, the infection can return and be harder to treat. You can use antacids, such as Tums, Rolaids, Mylanta, or Maalox, for pain. This will be useful the first few days after starting acid blockers when the blockers havent started working yet. Follow the directions on the label. Liquid antacids may work better than tablets. Note that antacids can interfere with absorption of certain medications. Specifically, do not take Tagamet (cimetidine), Zantac (ranitidine), or Carafate (sucralfate) within 1 hour of taking an antacid. Talk with your pharmacist if you have any questions. Although foods do not cause an ulcer, symptoms can be worsened by certain foods. Limit or avoid fatty, fried, and spicy foods, as well as coffee, chocolate, mint, and foods with high acid content such as tomatoes and citrus fruit and juices (orange, grapefruit, lemon). Avoid alcohol, caffeine, and tobacco, which can delay healing. Avoid aspirin and anti-inflammatory medications such as ibuprofen (Advil, Motrin) and naproxen (Naprosyn, Aleve). Acetaminophen (Tylenol) is safe to use. Do not take more than the amount listed on the label. Follow Up with your doctor or as advised. Further testing may be needed. If you do not begin to improve over the next 4 days, contact your doctor. If you had tests, youll be notified of any new findings that affect your care. Get Prompt Medical Attention if any of the following occur: Stomach pain gets worse or moves to the lower right abdomen (appendix area) Chest pain appears or gets worse, or spreads to the back, neck, shoulder, or arm Frequent vomiting (cant keep down liquids) Blood in the stool or vomit (red or black in color) Feeling weak or dizzy, fainting, or trouble breathing Fever of 100.4F (38C) or higher, or as directed by your healthcare provider GERD (Adult) The esophagus is a tube that carries food from the mouth to the stomach. A valve at the lower end of the esophagus prevents stomach acid from flowing upward. If this valve does not work properly, acid from the stomach enters the esophagus. If this occurs over and over, the acid will injure the lining of the esophagus. This condition is called GERD (gastroesophageal reflux disease) or acid reflux. When stomach acid flows upward into the esophagus, it causes burning, pressure or sharp pain in the upper abdomen or mid to lower chest. The pain can spread to the neck, back, or shoulder, similar to heart pain (angina). There may be belching, an acid taste in the back of the throat, chronic cough, or sore throat or hoarseness. GERD symptoms often occur during the day after a big meal, but it can also occur at night when lying down. Smoking,as well as drinking alcohol, increases the risk of GERD. GERD is a chronic condition. Once it begins, it is often lifelong. Treatment includes changes in eating habits and the use of acid cheryl medications to decrease the amount of acid in the stomach. Symptoms often improve with treatment, but if treatment is stopped, the symptoms usually return after a few months. So most persons with GERD will need to continue treatment. Home Care: Take the prescribed acid cheryl medication for the full course of treatment even if you begin to feel better sooner. This medication can take up to several days to fully control your symptoms. If you cant afford the prescribed medication, you can try xzpq-eqw-xqhzijx acid blockers, such as Pepcid AC, Tagamet, Zantac, or Aciphex. If these do not relieve your symptoms, a stronger acid-cheryl can be tried, such as Prilosec OTC. You can use antacids, such as Tums, Rolaids, Mylanta, or Maalox, for pain. This will be useful the first few days after starting acid blockers when the blockers havent started working yet. Follow the directions on the label. Liquid antacids may work better than tablets. Note that antacids can interfere with absorption of certain medications. Specifically, do not take Tagamet (cimetidine), Zantac (ranitidine), or Carafate (sucralfate) within 1 hour of taking an antacid. Talk with your pharmacist if you have any questions. Limit or avoid fatty, fried, and spicy foods, as well as coffee, chocolate, mint, and foods with high acid content such as tomatoes and citrus fruit and juices (orange, grapefruit, lemon). Avoid alcohol and smoking. Dont eat large meals, especially at night. Frequent, smaller meals are best. Do not lie down right after eating. And dont eat anything 3 hours before going to bed. If you are overweight, losing weight will reduce symptoms. Women should not wear corsets or girdles because this increases pressure on the stomach and worsens reflux. If your symptoms occur during sleep, use a foam wedge to elevate your upper body (not just your head.) Or, place 4" blocks under the head of your bed. Follow Up with your doctor or as advised by our staff. Further testing may be needed. If you do not begin to improve over the next 4 days, contact your doctor. If you had an x-ray, CT scan, or ECG (electrocardiogram), it will be reviewed by a specialist. Youll be notified of any new findings that affect your care. Get Prompt Medical Attention if any of the following occur: Stomach pain gets worse or moves to the lower right abdomen (appendix area) Chest pain appears or gets worse, or spreads to the back, neck, shoulder, or arm Frequent vomiting (cant keep down liquids) Blood in the stool or vomit (red or black in color) Feeling weak or dizzy, fainting, or trouble breathing Fever of 100.4F (38C) or higher, or as directed by your healthcare provider Murray Diet A bland diet is used for patients with an upset stomach. It consists of foods that are mild and easy to digest. It is better to eat small frequent meals rather than three large meals a day. BEVERAGES OK: Fruit juices, non-caffeinated teas and coffee, non-carbonated feliz AVOID: Carbonated beverage, caffeinated tea and coffee, all alcoholic beverages BREAD OK: Refined white, wheat or rye bread, adelia or soda crackers, [place] toast, plain rolls, bagels AVOID: Whole-grain bread CEREAL OK: Refined cereals: cooked or ready to eat AVOID: Whole grain cereals and granola, or those containing bran, seeds or nuts DESSERTS OK: Peanut butter and all others except those to "avoid" AVOID: Chocolate, cocoa, coconut, popcorn, nuts, seeds, jam, marmalade FRUITS OK: Canned, cooked, frozen or fresh fruits without seeds or tough skin AVOID: Olives, skin and seeds of fruit MEATS OK: All fresh or preserved meat, fish and fowl AVOID: Any that are prepared with those spices to "avoid" CHEESE & EGGS OK: Eggs, cottage cheese, cream cheese, other cheeses AVOID: All cheeses made with those spices to "avoid" POTATOES & PASTA OK: Potato, rice, macaroni, noodles, spaghetti AVOID: None SOUPS OK: All soups without heavy seasoning AVOID: Soups made with those spices to "avoid" VEGETABLES OK: Canned, cooked, fresh or frozen mildly flavored vegetables without seeds, skins or coarse fiber AVOID: Vegetables prepared with those spices to "avoid"; skin and seeds of vegetables and those with coarse fiber SPICES OK: Salt, lemon and [place] juice, vinegar, all extracts, lynda, cinnamon, thyme, mace, allspice, paprika AVOID: [place] powder, cloves, pepper, seed spices, garlic, gravy pickles, highly seasoned salad dressings Sucralfate Oral tablet What is this medicine? SUCRALFATE (SMOOTH juany fate) helps to treat ulcers of the intestine. How should I use this medicine? Take this medicine by mouth with a glass of water. Follow the directions on the prescription label. This medicine works best if you take it on an empty stomach, 1 hour before meals. Take your doses at regular intervals. Do not take your medicine more often than directed. Do not stop taking except on your doctor's advice. Talk to your lithoplate maker regarding the use of this medicine in children. Special care may be needed. What side effects may I notice from receiving this medicine? Side effects that you should report to your doctor or health progressive care unit registered nurse as soon as possible: allergic reactions like skin rash, itching or hives, swelling of the face, lips, or tongue difficulty breathing Side effects that usually do not require medical attention (report to your doctor or health progressive care unit registered nurse if they continue or are bothersome): back pain constipation drowsy, dizzy dry mouth headache stomach upset, gas trouble sleeping What may interact with this medicine? antacid cimetidine digoxin ketoconazole phenytoin quinidine ranitidine some antibiotics like ciprofloxacin, norfloxacin, and ofloxacin theophylline thyroid hormones warfarin What if I miss a dose? If you miss a dose, take it as soon as you can. If it is almost time for your next dose, take only that dose. Do not take double or extra doses. Where should I keep my medicine? Keep out of the reach of children. Store at room temperature between 15 and 30 degrees C (59 and 86 degrees F). Keep container tightly closed. Throw away any unused medicine after the expiration date. What should I tell my health care provider before I take this medicine? They need to know if you have any of these conditions: kidney disease an unusual or allergic reaction to sucralfate, other medicines, foods, dyes, or preservatives or trying to get breast-feeding What should I watch for while using this medicine? Visit your doctor or health progressive care unit registered nurse for regular check ups. Let your doctor know if your symptoms do not improve or if you feel worse. Antacids should not be taken within one half hour before or after this medicine. Omeprazole Magnesium Gastro-resistant tablet What is this medicine? OMEPRAZOLE (oh ME pray zol) prevents the production of acid in the stomach. It is used to treat the symptoms of heartburn. You can buy this medicine without a prescription. This product is not for long-term use, unless otherwise directed by your doctor or health progressive care unit registered nurse. How should I use this medicine? Take this medicine by mouth. Follow the directions on the product label. If you are taking this medicine without a prescription, take one tablet every day. Do not use for longer than 14 days or repeat a course of treatment more often than every 4 months unless directed by a doctor or healthcare professional. Take your dose at regular intervals every 24 hours. Swallow the tablet whole with a drink of water. Do not crush, break or chew. This medicine works best if taken on an empty stomach 30 minutes before breakfast. If you are using this medicine with the prescription of your doctor or healthcare professional, follow the directions you were given. Do not take your medicine more often than directed. Talk to your lithoplate maker regarding the use of this medicine in children. Special care may be needed. What side effects may I notice from receiving this medicine? Side effects that you should report to your doctor or health progressive care unit registered nurse as soon as possible: allergic reactions like skin rash, itching or hives, swelling of the face, lips, or tongue bone, muscle or joint pain breathing problems chest pain or chest tightness dark yellow or brown urine diarrhea dizziness fast, irregular heartbeat feeling faint or lightheaded fever or sore throat muscle spasm palpitations redness, blistering, peeling or loosening of the skin, including inside the mouth seizures tremors unusual bleeding or bruising unusually weak or tired yellowing of the eyes or skin Side effects that usually do not require medical attention (Report these to your doctor or health progressive care unit registered nurse if they continue or are bothersome.): constipation dry mouth headache loose stools nausea What may interact with this medicine? Do not take this medicine with any of the following medications: atazanavir clopidogrel nelfinavir This medicine may also interact with the following medications: ampicillin certain medicines for anxiety or sleep certain medicines that treat or prevent blood clots like warfarin cyclosporine diazepam digoxin disulfiram iron salts phenytoin prescription medicine for fungal or yeast infection like itraconazole, ketoconazole, voriconazole saquinavir tacrolimus What if I miss a dose? If you miss a dose, take it as soon as you can. If it is almost time for your next dose, take only that dose. Do not take double or extra doses. Where should I keep my medicine? Keep out of the reach of children. Store at room temperature between 20 and 25 degrees C (68 and 77 degrees F). Protect from light and moisture. Throw away any unused medicine after the expiration date. What should I tell my health care provider before I take this medicine? They need to know if you have any of these conditions: black or bloody stools chest pain difficulty swallowing have had heartburn for over 3 months have heartburn with dizziness, lightheadedness or sweating liver disease stomach pain unexplained weight loss vomiting with blood wheezing an unusual or allergic reaction to omeprazole, other medicines, foods, dyes, or preservatives or trying to get breast-feeding What should I watch for while using this medicine? It can take several days before your heartburn gets better. Check with your doctor or health progressive care unit registered nurse if your condition does not start to get better, or if it gets worse. Do not treat diarrhea with over the counter products. Contact your doctor if you have diarrhea that lasts more than 2 days or if it is severe and watery. Do not treat yourself for heartburn with this medicine for more than 14 days in a row. You should only use this medicine for a 2-week treatment period once every 4 months. If your symptoms return shortly after your therapy is complete, or within the 4 month time frame, call your doctor or health progressive care unit registered nurse. You have been given the following additional information: Gastritis Vs. Ulcer GERD (Adult) Diet, Murray (Adult) Sucralfate Oral tablet Omeprazole Magnesium Gastro-resistant tablet (Electronically signed by Brandon Downs MD 10/08/2016 1:22)
== END 2016-10-08 00:36 | disposition home or self-care (01) ==
LOC: ED SRH 21:51
DX: K21.0 Gastro-esophageal reflux disease with esophagitis (principal); K29.70 Gastritis, unspecified, without bleeding
CPT/HCPCS: 90004; 90100; 90616; 91556; 92235; 92530; 92610; 93070; 95059